=== PATIENT | female | born 1955 | race Caucasian/White ===

== ENCOUNTER 2022-08-23 04:43 | Emergency (ER) | payer MEDICARE, BC ==
[2022-08-23] MEDS ORDERED: Bisacodyl 10 MG Supp RECTAL ONE (06:46)
[2022-08-23] MEDS ORDERED: Glycerin Adult 2 GM Supp RECTAL ONE (06:52)
== END 2022-08-23 08:03 | disposition home or self-care (01) ==
LOC: JD.ED 04:43
DX: K59.00 Constipation, unspecified (principal); Z88.5 Allergy status to narcotic agent; Z88.0 Allergy status to penicillin; Z88.2 Allergy status to sulfonamides
CPT/HCPCS: 36415; 74018; 81001; 85025; 99283; A9270